=== PATIENT | female | born 1970 | race Caucasian/White ===

== ENCOUNTER 2017-09-30 00:22 | Emergency (ER) | payer BC, OTHER ==
--- OUTSIDE RECORDS SUMMARY | 2017-09-30 00:25 | XMS REPORT | Clinical Summary ---
:1970 Author Organization [facility] Address [address] [place] [address] Care Team Providers Name Role Phone Abhilash Vieira Primary Care Provider Allergies No Known Allergies Current Medications Prescription Sig. Disp. Refills Start End Status Date Date tiZANidine (ZANAFLEX) 4 mg 3 (three) Active 4 MG tablet times a day. 7 hydrocortisone 2.5 % Active cream 7 spironolactone 50 mg daily. Active (ALDACTONE) 50 MG 7 tablet HYDROcodone-acetaminop 1 tablet every 6 Discontinued hen (NORCO) 10-325 mg (six) hours as 7 018 per tablet needed. HORIZANT 600 mg tablet as needed. Discontinued extended release 7 018 methylPREDNISolone Take 1 tablet (4 21 tablet 0 (MEDROL DOSEPAK) 4 mg mg total) by 8 018 tabletIndications: mouth See Admin Spinal stenosis of Instructions for lumbar region with 5 days. Use as neurogenic directed by claudication package instructions Active Problems Not on file Encounters Date Type Specialty Care Team Description 09/21/2017 Orders Only Orthopedic Surgery Breann De MA 06/20/2017 Orders Only Orthopedic Surgery Santino Spinal Sia MA lumbar region with neurogenic claudication (Primary Dx) 05/25/2017 Office Visit Orthopedic Surgery Gera Delvalle Spinal stenosis branid King MD lumbar region with neurogenic claudication (Primary Dx) 05/15/2017 Orders Only Orthopedic Surgery Breann De MA 05/12/2017 Hospital Encounter Orthopedic Surgery Gera Delvalle MD 05/12/2017 Documentation Orthopedic Surgery Gera Delvalle MD 05/12/2017 Procedure Pass Orthopedic Surgery 05/12/2017 Surgery Orthopedic Surgery Gera Delvalle REVISION DISCECTOMY MD Christine L5-S1 04/18/2017 Documentation Orthopedic Surgery Gear Delvalle MD 04/17/2017 Pre-Admit Testing Pre-Admission Gera Delvalle Preop examination Appointment Testing MD Christine (Primary Dx) 04/17/2017 Hospital Encounter Radiology Gera Delvalle Spinal stenosis brandi King MD lumbar region with neurogenic claudication 04/17/2017 Anesthesia Event Orthopedic Surgery Cathi Sexton NP 04/11/2017 Office Visit Orthopedic Surgery Gera Delvalle Spinal stenosis brandi King MD lumbar region with neurogenic claudication (Primary Dx) 04/11/2017 Procedure Pass Radiology after 09/29/2016 Family History Medical History Relation Name Comments Diabetes Mother Jenna Childress Relation Name Status Comments Mother Jenna Childress Social History Tobacco Use Types Packs/Day Years Used Date Never Smoker Smokeless Tobacco: Never Used Alcohol Use Drinks/Week oz/Week Comments Yes 4-6 Glasses of wine 1-3 Cans of beer Sex Assigned at Date Recorded Not on file Last Filed Vital Signs Vital Sign Reading Time Taken Blood Pressure 127/82 05/12/2017 10:15 AM [employer] Pulse 89 05/12/2017 10:15 AM [employer] Temperature 36.4 C (97.5 F) 05/12/2017 9:36 AM [employer] Respiratory Rate 18 05/12/2017 10:15 AM [employer] Oxygen Saturation 100% 05/12/2017 10:15 AM [employer] Inhaled Oxygen Concentration - - Weight 66.1 kg (145 lb 12.8 oz) 04/17/2017 1:40 PM [employer] Height 170.2 cm (5' 7") 05/12/2017 6:45 AM [employer] Body Mass Index 22.84 04/17/2017 1:40 PM [employer] Plan of Treatment Health Maintenance Due Date Last Done Comments CERVICAL CANCER SCREENING 02/04/1993 INFLUENZA VACCINE 11/01/2017 Procedures Procedure Name Priority Date/Time Associated Comments Diagnosis SURGICAL PATHOLOGY Routine 05/12/2017 8:31 Results for this REQUEST AM [employer] procedure are in the results section. SD AN ELECTIVE Routine 05/12/2017 7:50 ENDOTRACHEAL AIRWAY AM [employer] Procedure Note - No Pedroza-Sor, PAPER TESTER - 05/12/2017 7:49 AM [employer] Airway Date/Time: 05/12/2017 7:26 AM Performed by: NO PEDORZA Authorized by: OLIVERIO SMART Location: OR Urgency: Elective Difficult Airway: No Anesthesiologist: OLIVERIO SMART Resident/PAPER TESTER/AA: NO PEDROZA Performed by: resident/PAPER TESTER/AA Preoxygenated with 100% O2: Yes C-spine Precautions Maintained Throughout: Yes Mask Ventilation: Easy mask Final Airway Type: Endotracheal airway Final Endotracheal Airway: ETT Cuffed: Yes Technique Used: Direct laryngoscopy Devices/Methods Used in Placement: Intubating stylet Insertion Site: Oral Blade Type: Roe Laryngoscope Blade/Videolaryngoscope Blade Size: 2 ETT Size (mm): 7.0 Cuff at minimum occlusion pressure: Yes Measured from: Lips ETT to Lips (cm): 20 Placement Verified by: CO2 detection, direct visualization and equal breath sounds Laryngoscopic view: Grade I - full view of glottis Rapid Sequence Induction (RSI): No Modified RSI: No Number of Attempts at Approach: 1 Smooth, atraumatic laryngoscopy; dentition intact OR FL < 1 HOUR Routine 05/12/2017 7:41 AM [employer] DISCECTOMY, LUMBAR 05/12/2017 7:15 AM [employer] M51.26, M48.062, M48.07, M54.30 Case Notes LARGE C-ARM Special Needs LARGE C-ARM, MICROSCOPE TYPE AND SCREEN STAT 05/12/2017 6:45 AM Results for this [employer] procedure are in the results section. POC PANEL 4 Routine 05/12/2017 6:38 AM Results for this [employer] procedure are in the results section. ESTIMATED GFR Routine 04/17/2017 1:54 PM Results for this [employer] procedure are in the results section. CBC HEMOGRAM Routine 04/17/2017 1:54 PM Preop examination Results for this [employer] procedure are in the results section. BASIC METABOLIC Routine 04/17/2017 1:54 PM Preop examination Results for this PANEL [employer] procedure are in the results section. MRI LUMBAR SPINE WO Routine 04/17/2017 12:17 PM Spinal stenosis of Results for this CONTRAST [employer] lumbar region with procedure are in neurogenic the results claudication section. after 09/29/2016 Results Surgical pathology request (05/12/2017 8:31 AM) [facility] DEPARTMENT OF PATHOLOGY AND GENOMIC MEDICINE Surgical pathology report See link below for PDF [facility] DEPARTMENT OF Lab Report PATHOLOGY AND GENOMIC MEDICINE Result status This is Final Report to [facility] DEPARTMENT OF [id number] PATHOLOGY AND GENOMIC MEDICINE Performing Organization Address [facility] Phone Number [facility] DEPARTMENT OF PATHOLOGY AND [address] [place] [phone] GENOMIC MEDICINE OR FL < 1 Hour (05/12/2017 7:41 AM) Narrative Performed At IMPRESSION: C-arm fluoroscopy under one hour was provided in the OR for RADIANT the referring physician. A radiologist was not present during the procedure. Refer to the Operative report issued by the performing provider for procedure details. LOCATION:[facility] 19 OR ROOM 8 PROCEDURE:REVISION DISCECTOMY L5-S1 START TIME:0710 END TIME:0740 FLUORO TIME:3 SECS DOSE (mGy):2.09 mGy TECH(S):SS/TS Procedure Note Interface, Radiology Results Incoming - 05/12/2017 3:13 PM [employer] IMPRESSION: C-arm fluoroscopy under one hour was provided in the OR for the referring physician. A radiologist was not present during the procedure. Refer to the Operative report issued by the performing provider for procedure details. LOCATION: [facility] OR ROOM 8 PROCEDURE: REVISION DISCECTOMY L5-S1 START TIME: 0710 END TIME: 0740 FLUORO TIME: 3 SECS DOSE (mGy): 2.09 mGy TECH(S): SS/TS Performing Organization Address City/[facility]ode Phone Number [facility] [address] [place] [phone] Type and screen (05/12/2017 6:45 AM) ABO grouping A [facility] DEPARTMENT OF PATHOLOGY AND GENOMIC MEDICINE Rh type NEG [facility] DEPARTMENT OF PATHOLOGY AND GENOMIC MEDICINE Antibody screen (gel) NEG [facility] DEPARTMENT OF PATHOLOGY AND GENOMIC MEDICINE Performing Organization Address City/[facility]ercode Phone Number [facility] DEPARTMENT OF PATHOLOGY AND [address] [place] [phone] GENOMIC MEDICINE POC panel 4 (05/12/2017 6:38 AM) POC sodium 137Comment: Testing 135 - 148 mEq/L [facility] DEPARTMENT OF PATHOLOGY performed on the [employer] AND [employer] instrument by DEBI Austin [id number] POC potassium 3.6 3.5 - 5.0 mEq/L [facility] DEPARTMENT OF PATHOLOGY AND GENOMIC MEDICINE POC hematocrit 42 37 - 47 % [facility] DEPARTMENT OF PATHOLOGY AND GENOMIC MEDICINE POC glucose 94 65 - 99 mg/dL [facility] DEPARTMENT OF PATHOLOGY AND GENOMIC MEDICINE Performing Organization Address City/[facility] Phone Number [facility] DEPARTMENT OF PATHOLOGY AND [address] [place] [address] [employer] [facility] Estimated GFR (04/17/2017 1:54 PM) GFR Non Af Amer >90 mL/min/1.73 m2 [facility] DEPARTMENT OF PATHOLOGY AND GENOMIC MEDICINE GFR Af Amer >90 mL/min/1.73 m2 [facility] DEPARTMENT OF Comment: PATHOLOGY AND GENOMIC Chronic kidney disease: <60 mL/min/1.73m2 MEDICINE Kidney failure: <15 mL/min/1.73m2 The estimated GFR is calculated from the IDMS-traceable Modification of Diet in Renal Disease Equation. The accuracy of the calculation is poor when the creatinine is normal. Calculated values >90 mL/min/1.73m2 are not reported. This equation has not been validated in children (<18 years), women, the elderly (>70 years), or ethnic groups other than Caucasians and Americans. Specimen Plasma specimen Performing Organization Address City/[facility] Centercode Phone Number [facility] DEPARTMENT OF PATHOLOGY AND [address] [place] [address] CBC hemogram (04/17/2017 1:54 PM) WBC 4.96 4.50 - 11.00 k/uL [facility] DEPARTMENT OF PATHOLOGY AND GENOMIC MEDICINE RBC 4.02 (L) 4.20 - 5.50 m/uL [facility] DEPARTMENT OF PATHOLOGY AND GENOMIC MEDICINE HGB 13.2 12.0 - 16.0 g/dL [facility] DEPARTMENT OF PATHOLOGY AND GENOMIC MEDICINE HCT 38.7 37.0 - 47.0 % [facility] DEPARTMENT OF PATHOLOGY AND GENOMIC MEDICINE MCV 96.3 82.0 - 100.0 fL [facility] DEPARTMENT OF PATHOLOGY AND GENOMIC MEDICINE MCH 32.8 27.0 - 34.0 pg [facility] DEPARTMENT OF PATHOLOGY AND GENOMIC MEDICINE MCHC 34.1 31.0 - 37.0 g/dL [facility] DEPARTMENT OF PATHOLOGY AND GENOMIC MEDICINE RDW - SD 42.4 37.0 - 55.0 fL [facility] DEPARTMENT OF PATHOLOGY AND GENOMIC MEDICINE MPV 9.9 8.8 - 13.2 fL [facility] DEPARTMENT OF PATHOLOGY AND GENOMIC MEDICINE Platelet count 276 150 - 400 k/uL [facility] DEPARTMENT OF PATHOLOGY AND GENOMIC MEDICINE Nucleated RBC 0.00 /100 WBC [facility] DEPARTMENT OF PATHOLOGY AND GENOMIC MEDICINE Specimen Blood Performing Organization Address City/[facility]ercode Phone Number [facility] DEPARTMENT OF PATHOLOGY AND [address] [place] [address] [facility] MEDICINE Basic metabolic panel (04/17/2017 1:54 PM) Sodium 138 135 - 148 mEq/L [facility] DEPARTMENT OF PATHOLOGY AND GENOMIC MEDICINE Potassium 5.3 (H) 3.5 - 5.0 mEq/L [facility] DEPARTMENT OF PATHOLOGY AND GENOMIC MEDICINE Chloride 98 98 - 112 mEq/L [facility] DEPARTMENT OF PATHOLOGY AND GENOMIC MEDICINE CO2 28 24 - 31 mEq/L [facility] DEPARTMENT OF PATHOLOGY AND GENOMIC MEDICINE Anion gap 12 7 - 15 mEq/L [facility] DEPARTMENT OF PATHOLOGY Comment: [facility] Starting from July , anion gap calculation no longer incorporates potassium. Please note the change. BUN 10 6 - 20 mg/dL [facility] DEPARTMENT OF PATHOLOGY AND GENOMIC MEDICINE Creatinine 0.6 0.5 - 0.9 mg/dL [facility] DEPARTMENT OF PATHOLOGY AND GENOMIC MEDICINE Glucose 88 65 - 99 mg/dL [facility] DEPARTMENT OF PATHOLOGY AND GENOMIC MEDICINE Calcium 9.4 8.3 - 10.2 mg/dL [facility] DEPARTMENT OF PATHOLOGY AND GENOMIC MEDICINE Specimen Plasma specimen Performing Organization Address City/[facility]ercode Phone Number [facility] DEPARTMENT OF PATHOLOGY AND [address] [place] [address] [facility] MRI Lumbar Spine Wo Contrast (04/17/2017 12:17 PM) Narrative Performed At EXAMINATION:MRI LUMBAR SPINE WO CONTRAST [facility] CLINICAL HISTORY:M48.062 Spinal stenosislumbar region with neurogenic claudication, SCS COMPARISON: None. FINDINGS: Noncontrast MRI of the lumbar spine is interpreted. The lowest fully formed disc space is designated L5-S1. The conus terminates in a normal position and is normal in signal intensity. Prominent Modic type I endplate edema is noted about the L5-S1 interbody space. No spondylolysis is identified. Mild disc degenerative changes are noted in the lower thoracic spine on sagittal images. L1-2: Unremarkable. L2-3: Unremarkable. L3-4: Unremarkable. L4-5: Unremarkable. L5-S1: Left laminotomy. Epidural scar is noted ventrally and on the left. Moderate loss of disc height. Disc bulge. Superimposed central/left subarticular zone disc extrusion with slight inferior migration is suspected. There is mild posterior displacement of the traversing left S1 nerve root. Mild bilateral foraminal narrowing. The paraspinous soft tissues are unremarkable. IMPRESSION: Disc degenerative changes at L5-S1 with prominent Modic type I endplate edema are seen. Left laminotomy is noted at the level with epidural scar present. There is suspicion for superimposed central/left subarticular zone disc extrusion with slight inferior migration contributing to mild posterior displacement of the traversing left S1 nerve root. [id number] Procedure Note Hm Interface, Radiology Results Incoming - 04/17/2017 2:26 PM [employer] EXAMINATION: MRI LUMBAR SPINE WO CONTRAST CLINICAL HISTORY: M48.062 Spinal stenosis lumbar region with neurogenic claudication, SCS COMPARISON: None. FINDINGS: Noncontrast MRI of the lumbar spine is interpreted. The lowest fully formed disc space is designated L5-S1. The conus terminates in a normal position and is normal in signal intensity. Prominent Modic type I endplate edema is noted about the L5-S1 interbody space. No spondylolysis is identified. Mild disc degenerative changes are noted in the lower thoracic spine on sagittal images. L1-2: Unremarkable. L2-3: Unremarkable. L3-4: Unremarkable. L4-5: Unremarkable. L5-S1: Left laminotomy. Epidural scar is noted ventrally and on the left. Moderate loss of disc height. Disc bulge. Superimposed central/left subarticular zone disc extrusion with slight inferior migration is suspected. There is mild posterior displacement of the traversing left S1 nerve root. Mild bilateral foraminal narrowing. The paraspinous soft tissues are unremarkable. IMPRESSION: Disc degenerative changes at L5-S1 with prominent Modic type I endplate edema are seen. Left laminotomy is noted at the level with epidural scar present. There is suspicion for superimposed central/left subarticular zone disc extrusion with slight inferior migration contributing to mild posterior displacement of the traversing left S1 nerve root. [id number] Performing Organization Address City/State/Zipcode Phone Number [facility] [address] [place] [address] after 09/29/2016 Insurance Payer Benefit Plan / Group Subscriber ID Type Phone Address [employer]OP OPEN ACCESS/NETWORK xxxxxxxxxxx HMO Home: [address] [facility] [facility]. [phone] ARGUETA ANDRZEJ, [address] [place] [address]
[2017-09-30] MEDS ORDERED: KETOROLAC 30 MG/ML INJ ONE (01:21)
[2017-09-30] MEDS ORDERED: DIAZEPAM 10 MG/2 ML INJ SYRINGE ONE (01:23)
[2017-09-30 02:10] LABS: Urine Blood NEGATIVE (NEG); Urine Glucose NEGATIVE (NEG); Urine Protein NEGATIVE (NEG)
--- NOTE | 2017-09-30 02:16 | EDPHYS ---
Physician Documentation [facility] Name: Chloe Meng Age: 47 yrs Sex: Female : 1970 Arrival Date: 09/30/2017 Time: 00:27 Bed 13 Private MD: Abhilash Vieira H ED Physician Jaylen Damon HPI: 09/30 01:15 This 47 yrs old Female presents to ER via Ambulatory with complaints of Neck cp Pain, <24hrs Old, Arm Pain. 01:15 The patient or guardian complains of decreased range of motion, pain, that is acute, cp tenderness, stiffness. The symptoms are located on the left side of neck. Onset: The symptoms/episode began/occurred yesterday. Context: started after waking up. Associated signs and symptoms: Pertinent positives: radiating pain down left arm, Pertinent negatives: chills, fever, headache, numbness, weakness, chest pain. Severity of symptoms: in the emergency department the symptoms are unchanged, despite home interventions. 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 - Social history:: Smoking status: Patient/guardian denies using tobacco. - Ebola Screening: : Patient negative for fever greater than or equal to 101.5 degrees Fahrenheit, and additional compatible Ebola Virus Disease symptoms Patient denies exposure to infectious person Patient denies travel to an Ebola-affected area in the 21 days before illness onset No symptoms or risks identified at this time. ROS: 01:20 Constitutional: Negative for body aches, chills, fever, poor PO intake. cp 01:20 Eyes: Negative for injury, pain, redness, and discharge. cp 01:20 ENT: Negative for drainage from ear(s), ear pain, sore throat, difficulty swallowing, difficulty handling secretions. 01:20 Neck: Positive for pain with movement, pain at rest, stiffness, tenderness, Negative for injury or acute deformity, swelling, swollen nodes. 01:20 Cardiovascular: Negative for chest pain, edema, palpitations. 01:20 Respiratory: Negative for cough, shortness of breath, wheezing. 01:20 Abdomen/GI: Negative for abdominal pain, nausea, vomiting, and diarrhea, constipation. 01:20 Skin: Negative for cellulitis, rash. 01:20 Neuro: Negative for altered mental status, dizziness, headache, numbness, weakness. 01:20 All other systems are negative. Exam: 01:25 Constitutional: The patient appears in no acute distress, alert, awake, cp non-diaphoretic, non-toxic, well developed, well nourished, uncomfortable. 01:25 Head/Face: Normocephalic, atraumatic. cp 01:25 Eyes: Periorbital structures: appear normal, Pupils: equal, round, and reactive to light and accomodation, Extraocular movements: intact throughout, Conjunctiva: normal, no exudate, no injection, Sclera: no appreciated abnormality, Lids and lashes: appear normal, bilaterally. 01:25 ENT: External ear(s): are unremarkable, Ear canal(s): are normal, clear, TM's: bulging, is not appreciated, bilaterally, dullness, bilaterally, erythema, is not appreciated, bilaterally, Nose: is normal, Mouth: Lips: moist, Oral mucosa: pink and intact, moist, Posterior pharynx: is normal, airway is patent, no erythema, no exudate. 01:25 Neck: ROM/movement: pain, that is moderate, with rotation to the left, with rotation to the right, limited range of motion, that is moderate, when rotating to the right, when rotating to the left, Meningeal signs: are not present, Lymph nodes: no appreciated lymphadenopathy. 01:25 Chest/axilla: Inspection: normal, Palpation: is normal, no crepitus, no tenderness. 01:25 Cardiovascular: Rate: tachycardic, Rhythm: regular. 01:25 Respiratory: the patient does not display signs of respiratory distress, Respirations: normal, no use of accessory muscles, no retractions, no splinting, no tachypnea, labored breathing, is not present, Breath sounds: are clear throughout, no decreased breath sounds, no stridor, no wheezing. 01:25 Abdomen/GI: Exam negative for discomfort, distension, guarding, Inspection: abdomen appears normal. 01:25 Back: pain, that is moderate, of the left trapezius and left scapular area, vertebral tenderness, is not appreciated. 01:25 Skin: cellulitis, is not appreciated, no rash present. 01:25 Neuro: Orientation: to person, place \T\ time. Mentation: lucid, able to follow commands, Motor: moves all fours, strength is normal, Sensation: no obvious gross deficits. Vital Signs: 00:38 BP 118 / 89; Pulse 101; Resp 18; Temp 98; Pulse Ox 97% ; Weight 65.77 kg; Height 5 ft. bp 7 in. (170.18 cm); 02:00 BP 105 / 79; Pulse 98; Resp 16; Pulse Ox 97% ; bp 00:38 Body Mass Index 22.71 (65.77 kg, 170.18 cm) bp MDM: 00:40 Patient medically screened. cp 02:00 Differential diagnosis: Cervical Raiculopathy Cervical Spondylosis cervical strain, cp Degenerative Disc Disease Thoracic Outlet Syndrome torticollis, Whiplash Injury. 02:15 Data reviewed: vital signs, nurses notes, radiologic studies, plain films. cp 02:15 Test interpretation: by ED physician or midlevel provider: plain radiologic studies. cp Counseling: I had a detailed discussion with the patient and/or guardian regarding: the historical points, exam findings, and any diagnostic results supporting the discharge/admit diagnosis, radiology results, the need for outpatient follow up, a family practitioner, to return to the emergency department if symptoms worsen or persist or if there are any questions or concerns that arise at home. Response to treatment: the patient's symptoms have mildly improved after treatment, and as a result, I will discharge patient. 09/30 01:38 Order name: Urine Dipstick--Ancillary (enter results); Complete Time: 02:16 eb 09/30 01:38 Order name: Urine --Ancillary (enter results); Complete Time: 02:16 eb 09/30 01:13 Order name: Urine Test (obtain specimen); Complete Time: 01:34 cp 09/30 01:13 Order name: XRAY C Spine Ap/lat cp 09/30 01:13 Order name: Urine Dipstick-Ancillary (obtain specimen); Complete Time: 01:34 cp Administered Medications: 01:33 Drug: Diazepam 5 mg Route: IM; Site: right gluteus; bp 02:24 Follow up: Response: Marked relief of symptoms bp 01:34 Drug: TORadol 60 mg Route: IM; Site: right gluteus; bp 02:24 Follow up: Response: Marked relief of symptoms; Pain is decreased bp Disposition: 11:14 Co-signature as Attending Physician, Jaylen Damon MD I agree with the assessment and wa plan of care. Disposition: 09/30/17 02:15 Discharged to Home. Impression: Torticollis. - Condition is Stable. - Discharge Instructions: Torticollis, Acute. - Prescriptions for Baclofen 10 mg Oral Tablet - take 1 tablet by ORAL route 3 times per day no driving while taking medication; 20 tablet. Diclofenac Sodium 75 mg Oral Tablet, Delayed Release (E.C.) - take 1 tablet by ORAL route 2 times per day; 20 tablet. - Medication Reconciliation Form, Thank You Letter, Antibiotic Education, Prescription Opioid Use form. - Follow up: Private Physician; When: 2 - 3 days; Reason: Recheck today's complaints. - Problem is new. - Symptoms have improved. Signatures: Dispatcher [employer] EDMS Demetrius Bates PA PA cp Appiah, William, MD MD wa Peltier, Brian, RN RN bp Corrections: (The following items were deleted from the chart) 02:25 02:15 09/30/2017 02:15 Discharged to Home. Impression: Torticollis. Condition is bp Stable. Forms are Medication Reconciliation Form, Thank You Letter, Antibiotic Education, Prescription Opioid Use. Follow up: Private Physician; When: 2 - 3 days; Reason: Recheck today's complaints. Problem is new. Symptoms have improved. cp
--- NOTE | 2017-09-30 02:16 | ER ---
Nurse's Notes [facility] Name: Chloe Meng Age: 47 yrs Sex: Female : 1970 Arrival Date: 09/30/2017 Time: 00:27 Bed 13 Private MD: Abhilash Vieira H Diagnosis: Torticollis Presentation: 09/30 00:37 Presenting complaint: Patient states: I'VE GOT THIS PAIN IN MY NECK THAT GOES DOWN MY bp LEFT ARM. Transition of care: patient was not received from another setting of care. Acute neurological deficit: none identified. Onset of symptoms is unknown. Risk Assessment: Do you want to hurt yourself or someone else? Patient reports no desire to harm self or others. Initial Sepsis Screen: Does the patient meet any 2 criteria? No. Patient's initial sepsis screen is negative. Does the patient have a suspected source of infection? No. Patient's initial sepsis screen is negative. Care prior to arrival: None. 00:37 Method Of Arrival: Ambulatory bp 00:37 Acuity: STEFANIE 4 bp Triage Assessment: 00:38 General: Appears in no apparent distress. comfortable, Behavior is calm, cooperative, bp appropriate for age. Pain: Complains of pain in back of neck. EENT: No deficits noted. Neuro: Level of Consciousness is awake, alert, obeys commands, Oriented to person, place, time, situation, Appropriate for age. Cardiovascular: No deficits noted. Respiratory: Airway is patent Respiratory effort is even, unlabored, Respiratory pattern is regular, symmetrical. GI: No signs and/or symptoms were reported involving the gastrointestinal system. : No signs and/or symptoms were reported regarding the genitourinary system. Derm: No deficits noted. Musculoskeletal: Circulation, motion, and sensation intact. Range of motion: intact in all extremities. DOCUMENTATION COORDINATOR: 00:38 LMP N/A - Irregular menses bp Historical: - Allergies: 00:38 No Known Allergies; bp - Home Meds: 00:38 spironolactone 50 mg Oral tab 1 tab once daily [Active]; bp - PMHx: 00:38 None; bp - Immunization history:: Adult Immunizations up to date. - Social history:: Smoking status: Patient/guardian denies using tobacco. - Ebola Screening: : Patient negative for fever greater than or equal to 101.5 degrees Fahrenheit, and additional compatible Ebola Virus Disease symptoms Patient denies exposure to infectious person Patient denies travel to an Ebola-affected area in the 21 days before illness onset No symptoms or risks identified at this time. Screenin:41 Abuse screen: Denies threats or abuse. Denies injuries from another. Nutritional bp screening: No deficits noted. Tuberculosis screening: No symptoms or risk factors identified. Fall Risk None identified. Assessment: 00:42 General: SEE TRIAGE NOTE. 47YO WF P/W LEFT NECK PAIN, NEUROVASCULAR INTACT. bp 02:23 Reassessment: PT D/C HOME AMBULATORY WITH FAMILY, DX WITH TORTICOLLIS. bp Vital Signs: 00:38 BP 118 / 89; Pulse 101; Resp 18; Temp 98; Pulse Ox 97% ; Weight 65.77 kg; Height 5 ft. bp 7 in. (170.18 cm); 02:00 BP 105 / 79; Pulse 98; Resp 16; Pulse Ox 97% ; bp 00:38 Body Mass Index 22.71 (65.77 kg, 170.18 cm) bp ED Course: 00:27 Patient arrived in ED. es 00:27 Abhilash Vieira DO is Private Physician. es 00:36 Con Phan, DEIB is Primary Nurse. bp 00:38 Triage completed. bp 00:38 Arm band placed on. bp 00:39 Demetrius Bates PA is PHCP. cp 00:40 Jaylen Damon MD is Attending Physician. cp 00:41 Patient has correct armband on for positive identification. Placed in gown. Bed in low bp position. Call light in reach. Side rails up X2. 02:20 XRAY C Spine Ap/lat In Process Unspecified. EDMS 02:23 No provider procedures requiring assistance completed. Patient did not have IV access bp during this emergency room visit. Administered Medications: 01:33 Drug: Diazepam 5 mg Route: IM; Site: right gluteus; bp 02:24 Follow up: Response: Marked relief of symptoms bp 01:34 Drug: TORadol 60 mg Route: IM; Site: right gluteus; bp 02:24 Follow up: Response: Marked relief of symptoms; Pain is decreased bp Outcome: 02:15 Discharge ordered by . cp 02:23 Discharged to home ambulatory, with family. bp 02:23 Condition: stable 02:23 Discharge instructions given to patient, Instructed on discharge instructions, follow up and referral plans. medication usage, Demonstrated understanding of instructions, follow-up care, medications, Prescriptions given X 2. 02:25 Patient left the ED. bp Signatures: Dispatcher [employer] Danielle Pantoja Corey, PA PA cp Peltier, Brian, RN RN bp
--- NOTE | 2017-09-30 09:38 | RAD REPORT ---
EXAM DESCRIPTION: RAD - C Spine Ap/Lat - 09/30/2017 2:20 am CLINICAL HISTORY: Persistent neck pain, decreased range of motion COMPARISON: None. FINDINGS: Cervical bodies are normal in height. Very slight anterior subluxation of C3 on C4 is pres ent. There are facet degenerative changes at this level which could account for the subluxation. Jeanie ent has reversal of the usual cervical lordosis with the apex at C6. C6-7 disc space is narrowed with endplate spurring. There is mild endplate spurring with minimal loss in disc height at C5-6. Mild fa cet joint degenerative change in the lower cervical spine. No fracture or acute bony process seen. No other disc space narrowing. There is no prevertebral soft tissue thickening or other suspicious soft tissue finding. IMPRESSION: Cervical spondylosis at C5-6 and C6-7. No fracture or acute finding. Concerns for disc herniation, central canal abnormality or occult bone process could be addressed wit h MR imaging.
== END 2017-09-30 02:25 | disposition home or self-care (01) ==
LOC: ER 00:22
DX: M43.6 Torticollis (principal)
CPT/HCPCS: 72040; 81003; 81025; 96372; 99283; J3360